=== PATIENT | female | born 1965 | race African-American/Black ===

== ENCOUNTER 2024-11-21 17:18 | Emergency (ER) | payer BC ==
[~2024-11-21] VITALS: Ht 167.6 cm; Wt 134.8 kg
[~2024-11-21 17:18] MED LIST: AMLODIPINE; HCTZ
[2024-11-21 17:21] VITALS: PULSE 112; O2SAT 98
[2024-11-21 17:26] VITALS: BP 178/107; RESP 16; TEMP 36.8; O2SAT 98
[2024-11-21] MEDS ORDERED: ACET10DR3 RIGHT EAR (19:29)
== END 2024-11-21 19:46 | disposition home or self-care (01) ==
LOC: ER 17:18
DX: H60.91 Unspecified otitis externa, right ear (principal)
CPT/HCPCS: 99282